=== PATIENT | female | born 1955 | race Caucasian/White ===

== ENCOUNTER 2024-07-05 11:24 | Outpatient (AMB) | payer MEDICARE, OTHER, SELFPAY ==
--- NOTE | 2024-07-05 11:44 | A.OFFPC_ITS ---
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 Intake Note: New patient visit Accompanied by: Spouse Allergies No Known Allergies Allergy (Verified 07/05/24 11:45) Tobacco use date assessed: 07/05/24 Fall risk assessment: No Falls in past year Last assessed Fall Risk: 07/05/24 Dental Screening Dental Screen Date: 07/05/24 Did you have a dental visit in the last 12 months?: Yes Did you have a dental problem in the last 6 months where you did not have access to dental care?: No Was dental information given to patient?: Patient has dentist HPI HPI Comments History of Present Illness Details This is a 68-year-old female with a past medical history of anxiety, hyperlipidemia and osteoarthritis presenting to [facility]. She relocated from [place] back to [place] in February of this year. She needs orders for a mammogram, and a referral for a colonoscopy. She reports her last colonoscopy was 10 years ago, and it was normal. Denies family history of colon cancer. Dr. Musa at [facility] doing right knee replacement 07/13/24. She will need to have the left done in 2024. She had a left hip replacement in [place] in November of 2022. She had a hysterectomy in 2008 for AUB. She does not see Gynecology anymore. I recommended a routine exam since there are other screenings done at these appointments (for example screening for vaginal cancer, breast cancer). She deferred for now. She takes Premarin for menopausal symptoms. She tried going off of it, and symptoms returned. She is on venlafaxine 150 mg daily for anxiety which is well-controlled. She does not feel that she needs to see a therapist right now. She is scheduling an eye exam with Dr. Fu. She had bilateral cataracts removed in 2021. She saw a sap sd analyst within the past year. She had a few benign lesions removed. She reports having a bone density exam in 2021. It was normal per pt. ROS: Constitutional: No unexplained weight loss, fever, chills, fatigue or night sweats. Respiratory: No shortness of breath Cardiovascular: No chest pain Neurologic: No headache, dizziness, syncope Skin: No rash or itching. Endocrine: No cold or heat intolerance. No polyuria or polydipsia. Psychiatric: No depression. No SI/HI. Physical exam: Constitutional: Alert, in no distress. Head: Normocephalic. Neck: Supple, Full range of motion. No lymphadenopathy. Respiratory: Clear to auscultation. Cardiovascular: S1 S2 regular. No murmurs. No carotid bruits. Gastrointestinal: Abdomen soft, non-tender, non-distended. Normal bowel sounds. No palpable masses. Extremities: Warm and well perfused. No clubbing, cyanosis or edema. Psychiatric: Normal mood and affect [facility] Medical History (Updated 07/05/24 @ 12:45 by VIKRAM Rasmussen) Osteoarthritis, multiple sites Menopausal state Hypercholesteremia Anxiety Surgical History (Updated 07/05/24 @ 12:52 by VIKRAM Rasmussen) History of hysterectomy History of left hip replacement History of bilateral cataract extraction Social History Housing: House Patient Tobacco Use Status: Former Tobacco user Cigarette Packs Per Day: 2 Years Smoked: 40 quit in 1995 e-Cigarette/Vaping Use: Never Used Second Hand Smoke Exposure: No service: No Current occupational status: retired Current occupational exposures/hazards: No Cognitive needs: No Hearing needs: No Vision needs: No Questionnaire PHQ-9 Over the last 2 weeks, how often have you been bothered by any of the following problems? 1. Little interest or pleasure in doing things: not at all 2. Feeling down, depressed, or hopeless: not at all 3. Trouble falling or staying asleep, or sleeping too much: not at all 4. Feeling tired or having little energy: not at all 5. Poor appetite or overeating: not at all 6. Feeling bad about yourself - or that you are a failure or have let yourself or your family down: not at all 7. Trouble concentrating on things, such as reading the newspaper or watching television: not at all 8. Moving or speaking so slowly that other people could have noticed. Or the opposite - being so fidgety or restless that you have been moving around a lot more than usual: not at all 9. Thoughts that you would be better off or of hurting yourself in some way: not at all Total score: 0 Depression Screening Interpretation: Negative Depression Screening Done: Yes 86489 - PHQ-9 Billing: Yes Source: Developed by Drs. Orville Donovan, Chantale Hess, Jose Izaguirre and colleagues, with an educational angelika from [employer]. Thrive Questionnaire Date Thrive assessed: 07/05/24 I am a: Patient What is your living situation today?: I have a steady place to live Within the past 12 months, did the food you bought not last and you didn't have the money to get more?: Never true Within the past 12 months, did you worry whether your food would run out before you got money to buy more?: Never true Do you have trouble paying for medicines?: No Do you have trouble getting transportation to medical appointments?: No Do you have trouble paying your heating and electricity bill?: No Do you have trouble taking care of your child, family member or friend?: No Do you have trouble with day-to-day activities such as bathing, preparing meals, shopping, managing finances, etc.?: No Are you currently unemployed and looking for a job?: No Are you interested in more education?: No Please select the resources that you would like help with: None Currently or been in a relationship where the following occur: No concerns reported THRIVE Score: 0 AUDIT C Alcohol Use Questionnaire (AUDIT-C) 1. How often do you have a drink containing alcohol?: Monthly or less 2. How many drinks containing alcohol do you have on a typical day when you are drinking?: 1 or 2 3. How often do you have six or more drinks on one occasion?: Never Total Score: 1 KENDAL-7 AMB Questionnaire KENDAL-7 Date KENDAL - 7 assessed: 07/05/24 Feeling nervous, anxious, or on edge: 0 = Not at all Not being able to stop or control worryin = Not at all Worrying too much about different things: 0 = Not at all Trouble relaxin = Not at all Being so restless that it is hard to sit still: 0 = Not at all Becoming easily annoyed or irritable: 0 = Not at all Feeling afraid as if something awful might happen: 0 = Not at all Total KENDAL-7 score (0-4 normal; 5-9 mild; 10-14 moderate; 15-21 severe): 0 Source: Developed by Drs. Orville Donovan, Chantale Hess, Jose Izaguirre and colleagues, with an educational angelika from [employer]. KENDAL-7 Assessment Billing KENDAL-7 Assessment Tool: KENDAL-7 Assessment 17071 Physical exam (Primary Care) Vital Signs: Last Vital Signs Temp 98.3 F 07/05/24 11:58 Pulse 80 07/05/24 11:58 Resp 14 07/05/24 11:58 BP 108/70 07/05/24 11:58 Pulse Ox 95 07/05/24 11:58 Oxygen Delivery Method Room Air 07/05/24 11:58 BMI result Body Mass Index 27.1 Tobacco/Smoking Status: Tobacco use Status Tobacco use date assessed 07/05/24 07/05/24 11:49 Patient Tobacco Use Status Former Tobacco user 07/05/24 11:49 e-Cigarette/Vaping Use Never Used 07/05/24 11:49 PHQ-9: PHQ-9 Score PHQ-9: Total score 0 07/05/24 12:33 Depression Screening Interpretation: Negative Thrive Assessment: Date of Thrive Assessment Date Thrive assessed 07/05/24 07/05/24 12:33 Currently or been in a relationship where the following occur: No concerns reported Assessment and Plan Assessment & Plan (1) Anxiety: Code(s): F41.9 - Anxiety disorder, unspecified (2) Hypercholesteremia: Code(s): E78.00 - Pure hypercholesterolemia, unspecified (3) Menopausal state: Code(s): N95.1 - Menopausal and female climacteric states (4) Osteoarthritis, multiple sites: Code(s): M15.9 - Polyosteoarthritis, unspecified Qualifiers: Osteoarthritis type: primary Qualified Code(s): M15.0 - Primary generalized (osteo)arthritis Plan Anxiety Controlled. Continue venlafaxine ER 150 mg daily. Hypercholesterolemia She has not required medication for this. Check fasting lipid profile. Menopausal state See HPI. Refill Premarin. Side effects and risks reviewed with patient. Osteoarthritis Patient proceeding with knee replacement surgery. Screening mammogram and colonoscopy ordered. Follow up in 6 months for med review. Orders: Orders Lipid Panel Today E78.00 - Pure hypercholesterolemia, unspecified, F41.9 - Anxiety disorder, unspecified, M15.0 - Primary generalized (osteo)arthritis, N95.1 - Menopausal and female climacteric states Comprehensive Met. Panel Today E78.00 - Pure hypercholesterolemia, unspecified, F41.9 - Anxiety disorder, unspecified, M15.0 - Primary generalized (osteo)arthritis, N95.1 - Menopausal and female climacteric states Complete Blood Count no Diff Today E78.00 - Pure hypercholesterolemia, unspecified, F41.9 - Anxiety disorder, unspecified, M15.0 - Primary generalized (osteo)arthritis, N95.1 - Menopausal and female climacteric states MM screening mammo BI Today E78.00 - Pure hypercholesterolemia, unspecified, F41.9 - Anxiety disorder, unspecified, M15.0 - Primary generalized (osteo)arthritis, N95.1 - Menopausal and female climacteric states Referrals Open Access Screening Colonoscopy Referral Z12.11 - Encounter for screening for malignant neoplasm of colon, Z12.12 - Encounter for screening for malignant neoplasm of rectum Medications: New conjugated estrogens (Premarin) 0.625 mg PO DAILY 90 tabs 3RF venlafaxine ER 150 mg PO DAILY 90 caps 3RF Coding Level of Care Code New Pt Level 4 (62495) Complex EM visit Add On G2211 Diagnoses Anxiety F41.9 Hypercholesteremia E78.00 Menopausal state N95.1 Primary osteoarthritis involving multiple joints M15.0 Osteoarthritis type: primary Additional Codes KENDAL-7 Assessment Billing - KENDAL-7 Assessment Tool: KENDAL-7 Assessment 24735 ([id number])
[2024-07-05 11:58] VITALS: BP 108/70; PULSE 80; RESP 14; TEMP 36.8; O2SAT 95; BMI 27.1
== END 2024-07-05 12:52 | disposition home or self-care (01) ==
PROVIDERS: PCP Internal Medicine; Visit Provider Physician Assistant Medical
DX: F41.9 Anxiety disorder, unspecified (principal); E78.00 Pure hypercholesterolemia, unspecified; N95.1 Menopausal and female climacteric states; M15.0 Primary generalized (osteo)arthritis
CPT/HCPCS: 96127; 99204

== ENCOUNTER 2024-08-24 11:30 | Outpatient (REF) | payer MEDICARE, OTHER, SELFPAY ==
--- NOTE | ~2024-08-24 | MM_ITS ---
EXAMINATION: MM SCREENING DIGITAL BREAST TOMOSYNTHESIS, BILATERAL CLINICAL INFORMATION: Screening. Asymptomatic. COMPARISON: Mammography: Comparison is made with available priors TECHNIQUE: Digital breast mammography with tomosynthesis is performed in both the craniocaudal and mediolateral oblique views along with computer-aided detection (CAD). FINDINGS: There are scattered areas of fibroglandular density (ACR BI-RADS breast composition Category b). There are no significant masses, abnormal calcifications, or other abnormalities. MM/MM tomosynthesis screening BI IMPRESSION: No mammographic evidence of malignancy. ASSESSMENT: BI-RADS BI-RADS 1 - Negative RECOMMENDATION: Routine annual mammography screening. 1 year F/U This examination should not preclude the clinical evaluation of a suspicious palpable abnormality. This patient's information was entered into a reminder system with a target due date for their next mammogram. Electronically signed by: Karlene Rain DO 09/08/2024 11:51 AM EDT
== END 2024-08-24 11:31 | disposition home or self-care (01) ==
LOC: HO.MAMMO 11:30
PROVIDERS: PCP Internal Medicine; Visit Provider Physician Assistant Medical
DX: Z12.31 Encounter for screening mammogram for malignant neoplasm of breast (principal)
CPT/HCPCS: 77063; 77067

== ENCOUNTER → 2024-08-24 11:45 | Outpatient (BNV) | payer MEDICARE, OTHER, SELFPAY | PROVIDERS: PCP Internal Medicine; Visit Provider Internal Medicine | DX: Z12.31 Encounter for screening mammogram for malignant neoplasm of breast (principal) | CPT/HCPCS: 77063; 77067 ==

== ENCOUNTER 2025-04-15 08:23 | Outpatient (REF) | payer MEDICARE, OTHER, SELFPAY ==
[2025-04-15 11:36] LABS: Hematocrit 43.7 % (37.0-47.0); Hemoglobin 14.1 g/dl (12.0-16.0); Mean Corpuscular HGB Conc 32.3 g/dl (31.0-35.0); Mean Corpuscular Hemoglobin 31.4 pg (27.0-33.0); Mean Corpuscular Volume 97.3 fL (80.0-98.0); Mean Platelet Volume 9.7 fL (9.4-12.3); Platelet Count 397 X10*3/uL (160-400); Red Blood Count 4.49 X10*6/uL (4.20-5.50); Red Cell Distribution Width 13.2 % (11.0-16.0); White Blood Count 5.3 X10*3/uL (4.8-10.8)
[2025-04-15 12:00] LABS: Alanine Aminotransferase 14 U/L (0-31); Alkaline Phosphatase 50 U/L (39-117); Anion Gap 11 (12-20); Aspartate Amino Transferase 24 U/L (5-31); Bilirubin Total 0.4 mg/dL (0.0-1.0); Blood Urea Nitrogen 20 mg/dL (9-16); Calcium 9.2 mg/dL (8.4-10.2); Carbon Dioxide 28 mmol/L (22-29); Chloride 108 mmol/L (96-108); Cholesterol 228 mg/dL (<200); Estimated Glomerular Filt Rate > 60; Glucose Random 90 mg/dL (60-115); HDL Cholesterol 71 mg/dL (>40); LDL Cholesterol Calculated 135 mg/dL (<100); Potassium 4.6 mmol/L (3.3-5.1); Sodium 142 mmol/L (135-145); Total Protein 7.1 g/dL (6.5-8.0); Triglycerides 113 mg/dL (<150)
== END 2025-04-15 08:24 | disposition home or self-care (01) ==
LOC: HO.WFDLDS 08:23
PROVIDERS: Visit Provider Physician Assistant Medical
DX: M15.0 Primary generalized (osteo)arthritis (principal); N95.1 Menopausal and female climacteric states; E78.00 Pure hypercholesterolemia, unspecified; F41.9 Anxiety disorder, unspecified
CPT/HCPCS: 36415; 80053; 80061; 85027

== ENCOUNTER 2025-04-25 15:07 | Outpatient (AMB) | payer MEDICARE, OTHER, SELFPAY ==
--- NOTE | 2025-04-25 15:14 | MHC.PC.OV ---
Vital Signs 04/25/25 15:20 Height 5 ft 2.4 in Weight 155 lb 8 oz BMI 28.1 BP 116/70 Blood Pressure Location Rt brachial Position Sitting Pulse 73 Pulse Source Pulse Oximeter Temp 97.7 F Temp Source Temporal Artery Scan Pulse Oximetry (%) 97 Oxygen Delivery Method Room Air Intake Visit Reasons: follow up blood work/medications, resched Intake Note: Randi presents in the office today for a follow up to her medication and most recent blood work. Allergies No Known Allergies Allergy (Verified 04/25/25 15:19) Medication List - Last Reconciled 04/25/25 by VIKRAM Rasmussen conjugated estrogens (Premarin) 0.625 mg PO DAILY venlafaxine ER 150 mg PO DAILY Tobacco use date assessed: 04/25/25 Fall risk assessment: No Falls in past year Last assessed Fall Risk: 04/25/25 Dental Screening Dental Screen Date: 04/25/25 Did you have a dental visit in the last 12 months?: No Did you have a dental problem in the last 6 months where you did not have access to dental care?: No Was dental information given to patient?: Patient has dentist HPI HPI Comments History of Present Illness Details This is a 68-year-old female with a past medical history of anxiety, hyperlipidemia and osteoarthritis presenting for a follow up visit. She relocated from [place] back to [place] in February of this year. We reviewed her recent blood work. She has hyperlipidemia with an LDL cholesterol of 135. Her ASCVD risk score is 8.7%. She just recently started back at the gym and eating healthier. She is a former smoker but quit in the s. She never heard back from [facility] about scheduling her colonoscopy. The last colonoscopy was 10 years ago, and it was reportedly normal. I referred her to [facility] for this today. She had a hysterectomy in 2008 for AUB. She does not see Gynecology anymore. I recommended a routine exam since there are other screenings done at these appointments (for example screening for vaginal cancer, breast cancer). She deferred for now. She takes Premarin for menopausal symptoms. She is on venlafaxine 150 mg daily for anxiety which is well-controlled. She saw a upholstery handler within the past year. She had a few benign lesions removed. She reports having a bone density exam in 2021. It was normal per pt. Ordered new exam. Mammogram is up-to-date. Reports vaccines UTD through pharmacy. ROS: Constitutional: No unexplained weight loss, fever, chills, fatigue or night sweats. Eyes: No vision changes, blurry vision, double vision, eye pain, eye redness, eye discharge. ENT: No hearing loss, sneezing, congestion, runny nose or sore throat. Respiratory: No shortness of breath, cough or sputum production. Cardiovascular: No chest pain, chest pressure or chest discomfort. No palpitations or pedal edema. Gastrointestinal: No anorexia, nausea, vomiting or diarrhea. No abdominal pain or blood in stool. Psychiatric: No depression or anxiety. No SI/HI. Physical exam: Constitutional: Alert, in no distress. Head: Normocephalic. Neck: Supple, Full range of motion. No lymphadenopathy. Respiratory: Clear to auscultation. Cardiovascular: S1 S2 regular. II/ systolic murmur. No carotid bruits. Extremities: Warm and well perfused. No clubbing, cyanosis or edema. Psychiatric: Normal mood and affect [facility] Medical History (Updated 04/25/25 @ 15:46 by VIKRAM Rasmussen) Heart murmur Osteoarthritis, multiple sites Menopausal state Hypercholesteremia Anxiety Surgical History (Updated 07/05/24 @ 12:52 by VIKRAM Rasmussen) History of hysterectomy History of left hip replacement History of bilateral cataract extraction Social History (Updated 04/25/25 @ 15:20 by Kati Geller MA) Housing: House Alcohol intake: current Patient Tobacco Use Status: Former Tobacco user Cigarette Packs Per Day: 2 Years Smoked: 40 quit in 1995 e-Cigarette/Vaping Use: Never Used Second Hand Smoke Exposure: No service: No Current occupational status: retired Current occupational exposures/hazards: No Cognitive needs: No Hearing needs: No Vision needs: No Questionnaire PHQ-9 Over the last 2 weeks, how often have you been bothered by any of the following problems? 1. Little interest or pleasure in doing things: not at all 2. Feeling down, depressed, or hopeless: not at all 3. Trouble falling or staying asleep, or sleeping too much: not at all 4. Feeling tired or having little energy: not at all 5. Poor appetite or overeating: not at all 6. Feeling bad about yourself - or that you are a failure or have let yourself or your family down: not at all 7. Trouble concentrating on things, such as reading the newspaper or watching television: not at all 8. Moving or speaking so slowly that other people could have noticed. Or the opposite - being so fidgety or restless that you have been moving around a lot more than usual: not at all 9. Thoughts that you would be better off or of hurting yourself in some way: not at all Total score: 0 Depression Screening Interpretation: Negative Depression Screening Done: Yes 49460 - PHQ-9 Billing: Yes Source: Developed by Drs. Orville Donovan, Chantale Hess, Jose Izaguirre and colleagues, with an educational angelika from [employer]. Thrive Questionnaire Date Thrive assessed: 04/25/25 I am a: Patient What is your living situation today?: I have a steady place to live Within the past 12 months, did the food you bought not last and you didn't have the money to get more?: Never true Within the past 12 months, did you worry whether your food would run out before you got money to buy more?: Never true Do you have trouble paying for medicines?: No Do you have trouble getting transportation to medical appointments?: No Do you have trouble paying your heating and electricity bill?: No Do you have trouble taking care of your child, family member or friend?: No Do you have trouble with day-to-day activities such as bathing, preparing meals, shopping, managing finances, etc.?: No Are you currently unemployed and looking for a job?: No Are you interested in more education?: No Please select the resources that you would like help with: None Currently or been in a relationship where the following occur: No concerns reported THRIVE Score: 0 AUDIT C Alcohol Use Questionnaire (AUDIT-C) 1. How often do you have a drink containing alcohol?: 2-4 times a month 2. How many drinks containing alcohol do you have on a typical day when you are drinking?: 1 or 2 3. How often do you have six or more drinks on one occasion?: Never Total Score: 2 Score Reviewed/Action Taken: No KENDAL-7 AMB Questionnaire KENDAL-7 Date KENDAL - 7 assessed: 04/25/25 Feeling nervous, anxious, or on edge: 0 = Not at all Not being able to stop or control worryin = Not at all Worrying too much about different things: 0 = Not at all Trouble relaxin = Not at all Being so restless that it is hard to sit still: 0 = Not at all Becoming easily annoyed or irritable: 0 = Not at all Feeling afraid as if something awful might happen: 0 = Not at all Total KENDAL-7 score (0-4 normal; 5-9 mild; 10-14 moderate; 15-21 severe): 0 Source: Developed by Drs. Orville Donovan, Chantale Hess, Jose Izaguirre and colleagues, with an educational angelika from [employer]. KENDAL-7 Assessment Billing KENDAL-7 Assessment Tool: KENDAL-7 Assessment 63828 Physical exam (Primary Care) Vital Signs: Last Vital Signs Temp 97.7 F 04/25/25 15:20 Pulse 73 04/25/25 15:20 BP 116/70 04/25/25 15:20 Pulse Ox 97 04/25/25 15:20 Oxygen Delivery Method Room Air 04/25/25 15:20 BMI result Body Mass Index 28.1 Tobacco/Smoking Status: Tobacco use Status Tobacco use date assessed 04/25/25 04/25/25 15:24 Patient Tobacco Use Status Former Tobacco user 04/25/25 15:24 e-Cigarette/Vaping Use Never Used 04/25/25 15:24 PHQ-9: PHQ-9 Score PHQ-9: Total score 0 04/25/25 15:48 Depression Screening Interpretation: Negative Thrive Assessment: Date of Thrive Assessment Date Thrive assessed 04/25/25 04/25/25 15:24 Currently or been in a relationship where the following occur: No concerns reported Office Procedures EKG Details: EKG demonstrates normal sinus rhythm and ventricular rate of 72 beats per minute 15610-[id number], Complete Coding Level of Care Code Est Pt Level 4 (01000) Complex EM visit Add On G2211 Diagnoses Heart murmur R01.1 Menopausal state N95.1 Hypercholesteremia E78.00 Anxiety F41.9 CPT Codes EKG - CPT: 46411-[id number], Complete ([id number]) Additional Codes KENDAL-7 Assessment Billing - KENDAL-7 Assessment Tool: KENDAL-7 Assessment 84463 ([id number]) PHQ-9 - 47425 - PHQ-9 Billing: Yes ([id number]) Assessment & Plan Assessment & Plan (1) Heart murmur: Code(s): R01.1 - Cardiac murmur, unspecified Category: Medical Plan: EKG normal. Baseline echocardiogram ordered for evaluation of new murmur. (2) Menopausal state: Code(s): N95.1 - Menopausal and female climacteric states Category: Medical Plan: Doing well on Premarin. Refilled. (3) Hypercholesteremia: Code(s): E78.00 - Pure hypercholesterolemia, unspecified Category: Medical Plan: I recommended starting a statin. She declines and does not want alternative medications for cholesterol. She will increase fiber in her diet. She will follow up with the Mediterranean diet. She is exercising again. We will re-evaluate this in 6 months. (4) Anxiety: Code(s): F41.9 - Anxiety disorder, unspecified Category: Medical Plan: Doing well. Continue Effexor 150 mg daily. Plan Follow up in 6 months for a wellness exam. Orders: Orders XR DEXA axial skeleton Today E28.39 - Other primary ovarian failure CA echo transthoracic complete Today R01.1 - Cardiac murmur, unspecified AMB EKG-In Office Today R01.1 - Cardiac murmur, unspecified Referrals Gastroenterology Referral Z12.11 - Encounter for screening for malignant neoplasm of colon Medications: Refilled conjugated estrogens (Premarin) 0.625 mg PO DAILY 90 tabs 3RF venlafaxine ER 150 mg PO DAILY 90 caps 3RF
[2025-04-25 15:20] VITALS: BP 116/70; PULSE 73; TEMP 36.5; O2SAT 97; BMI 28.1
== END 2025-04-25 16:01 | disposition home or self-care (01) ==
LOC: HO.HMCFM 15:07
PROVIDERS: PCP Physician Assistant Medical; Visit Provider Physician Assistant Medical
DX: R01.1 Cardiac murmur, unspecified (principal); N95.1 Menopausal and female climacteric states; E78.00 Pure hypercholesterolemia, unspecified; F41.9 Anxiety disorder, unspecified

== ENCOUNTER → 2025-04-25 15:07 | Outpatient (BNVA) | payer MEDICARE, OTHER, SELFPAY | PROVIDERS: PCP Physician Assistant Medical; Visit Provider Physician Assistant Medical | DX: E78.5 Hyperlipidemia, unspecified (principal); M19.90 Unspecified osteoarthritis, unspecified site; R01.1 Cardiac murmur, unspecified; N95.1 Menopausal and female climacteric states; E78.00 Pure hypercholesterolemia, unspecified; F41.9 Anxiety disorder, unspecified; E28.39 Other primary ovarian failure | CPT/HCPCS: 93005; 96127; 99212 ==

== ENCOUNTER → 2025-05-18 12:59 | Outpatient (REF) | payer MEDICARE, OTHER, SELFPAY ==
--- NOTE | 2025-05-18 13:03 | CA_ITS ---
Transthoracic Echocardiogram Patient (Last, First, Middle): Randi Parsons A Gender: Female Date of : 1955 Age: 69 Procedure Date: 05/18/2025 Procedure Type: Transthoracic Echocardiogram Location: OP Height: 157.48 cm Weight: 70.31 kg BSA: 1.72 m2 Heart Rate: bpm BP: 116 / 70 mmHg [employer]: [id number] Referring MD: Esme SUE Symptoms: R01.1 - Cardiac murmur, unspecified Study Quality: Adequate with contrast ECG Rhythm: Sinus Conclusions: - The left ventricular systolic function is normal. The visually estimated ejection fraction is between 60-65%. - No obvious valvular pathology seen on this study. Findings Procedure Information Contrast agent, definity, is being given per protocol without apparent complications. Left Ventricle Normal left ventricular cavity size. The left ventricular systolic function is normal. The visually estimated ejection fraction is between 60-65%. There is no evidence of regional wall motion abnormalities. Diastolic function is normal for age. There is mild septal and mild basal asymmetric hypertrophy. Right Ventricle Normal right ventricular cavity size and systolic function. Atria Both atria are normal in size. Aortic Valve There is a normal trileaflet aortic valve. There is no aortic valve stenosis. There is no aortic valve regurgitation. Mitral Valve The mitral valve appears normal. There is trace mitral valve regurgitation. There is no mitral valve stenosis. Pulmonic Valve The pulmonic valve is likely normal. Tricuspid Valve There is mild tricuspid valve regurgitation. There is no evidence of pulmonary hypertension. Great Vessels The asc aorta and aortic arch are normal in size. Venous The inferior vena cava is normal in size and collapses greater than 50% with inspiration. Pericardium/Pleural There is no evidence of pericardial effusion. Prior Study Comparison No prior study available for comparison. Recommendations, Care & Conclusions No obvious valvular pathology seen on this study. Measurements 2D Linear Measurements IVSd: 1.22 0.6-0.9/0.6-1.0 cm LVIDd: 3.66 3.9-5.3/4.2-5.9 cm LVIDd Index: 2.13 2.4-3.2/2.2-3.1 cm/m2 LVIDs: 2.35 2.0-3.6 cm LVPWd: 0.90 0.7-1.1 cm LA Diam: 3.70 2.7-3.8/3.0-4.0 cm LAIDs Index: 2.15 1.5-2.3 cm/m2 LV Mass: 149.73 67-162/88-224 g LV Mass Index: 87.05 43-95/49-115 g/m2 LVOT Diam: 1.90 3.0+(-)1.3 cm Mitral Valve MV Pk E: 0.70 MV PK A: 0.69 MV Decel Time: 215.00 E/A: 1.00 E'Lateral: 9.79 E'Medial: 5.00 E/E' Med: 14.10 E/E' Lat: 7.20 PHT: 63.00 MVA PHT: 3.49 Decel [place]: 3.27 Aortic Valve AoV Pk Cory: 1.35 AoV Mn Cory: 1.00 AoV VTI: 0.34 AoV Pk Grad: 7.00 Aov Mn Grad: 4.00 TE Cont.VTI: 2.22 LVOT LVOT Pk Cory: 1.25 LVOT Mn Cory: 0.82 LVOT VTI: 0.27 LVOT Pk Grad: 6.00 LVOT Mn Grad: 3.00 LVOT Diam: 1.90 LVOT Area: 2.84 Diastolic Function MV Pk E: 0.70 MV Pk A: 0.69 E/A: 1.00 E'Medial: 5.00 E/E' Med: 14.10 E' Laterial: 9.79 E/E' Lat: 7.20 Right Ventricle TAPSE (mm): 28.10 TVS' Cory: 14.40 Tricuspid Valve TR Pk Cory: 2.26 TR Pk Grad: 20.00 RA Press: 3.00 RVSP: 23.00 Great Vessels Aorta Sinus of Valsalva: 3.31 2.0-3.[address] [place]: 2.51 1.7-3.4 cm Ao Asc: 3.20 2.1-3.4 cm Ao Arch: 2.70 Updated in Other Vendor System with Status of Final Sam Tenorio MD electronically signed on 05/20/2025 12:50:46 PM with status of Final
== END ==
LOC: HO.CARD 12:59
PROVIDERS: PCP Physician Assistant Medical; Visit Provider Physician Assistant Medical
DX: R01.1 Cardiac murmur, unspecified (principal)
CPT/HCPCS: 93306; Q9957

== ENCOUNTER → 2025-05-18 13:03 | Outpatient (BNV) | payer MEDICARE, OTHER, SELFPAY | PROVIDERS: PCP Physician Assistant Medical; Visit Provider Internal Medicine | DX: I42.2 Other hypertrophic cardiomyopathy (principal); I36.1 Nonrheumatic tricuspid (valve) insufficiency | CPT/HCPCS: 93306 ==

== ENCOUNTER 2025-05-25 10:24 | Outpatient (REF) | payer MEDICARE, OTHER, SELFPAY ==
--- NOTE | ~2025-05-25 | MM_ITS ---
EXAMINATION: DXA BONE DENSITY AXIAL HISTORY: E28.39 - Other primary ovarian failure TECHNIQUE: CEYX Dual energy absorptiometry (DEXA) of the lumbar spine, total right hip, and femoral neck was performed. COMPARISON: There are no prior studies for comparison. FINDINGS: The bone mineral density of the lumbar spine is 1.315 g/cm2, corresponding to a T-score of 1.2, and a Z-score of 2.8. This is indicative of normal bone mineral density. The bone mineral density of the right total hip is 1.102 g/cm2, corresponding to a T-score of 0.7, and a Z-score of 2.2. This is indicative of normal bone mineral density. The bone mineral density of the right femoral neck is 0.913 g/cm2, corresponding to a T-score of -0.9, and a Z-score of 0.8. This is indicative of normal bone mineral density. MM/XR DEXA axial skeleton IMPRESSION: Based on bone mineral density, and according to World Health Organization (WHO) criteria, the diagnosis is consistent with normal bone mineral density. Statistically, 68% of repeat scans fall within 1 SD (+/- 0.010 g/cm2 for AP spine L1-L4) and 1 SD (+/- 0.012 g/cm2 for femur total) FRAX is a trademark of the [employer] [employer], a World Health Organization (WHO) Collaborating Center. Electronically signed by: Orville Fernández MD 05/26/2025 07:03 AM EDT
== END 2025-05-25 10:25 | disposition home or self-care (01) ==
LOC: HO.MAMMO 10:24
PROVIDERS: PCP Physician Assistant Medical; Visit Provider Physician Assistant Medical
DX: Z13.820 Encounter for screening for osteoporosis (principal); E28.39 Other primary ovarian failure
CPT/HCPCS: 77080

== ENCOUNTER → 2025-05-25 10:30 | Outpatient (BNV) | payer MEDICARE, OTHER, SELFPAY | PROVIDERS: PCP Physician Assistant Medical; Visit Provider Radiology Diagnostic Radiology | DX: E28.39 Other primary ovarian failure (principal) | CPT/HCPCS: 77080 ==

== ENCOUNTER 2025-09-22 12:21 | Outpatient (REF) | payer MEDICARE, OTHER, SELFPAY | END 2025-09-22 12:22 | disposition home or self-care (01) | LOC: HO.MAMMO 12:21 | PROVIDERS: PCP Physician Assistant Medical; Visit Provider Physician Assistant Medical | DX: Z12.31 Encounter for screening mammogram for malignant neoplasm of breast (principal) | CPT/HCPCS: 77063; 77067 ==

== ENCOUNTER → 2025-09-22 12:30 | Outpatient (BNV) | payer MEDICARE, OTHER, SELFPAY | PROVIDERS: PCP Physician Assistant Medical; Visit Provider Radiology Body Imaging | DX: Z12.31 Encounter for screening mammogram for malignant neoplasm of breast (principal) | CPT/HCPCS: 77063; 77067 ==